=== PATIENT | male | born 1965 | race Caucasian/White ===

== ENCOUNTER 2016-03-19 17:09 | Emergency (ER) | payer BC ==
[~2016-03-19] VITALS: Ht 167.6 cm; Wt 90.7 kg
[~2016-03-19 17:09] MED LIST: NOMEDS XX; NORCO 325 MG-51 TAB PO
--- NOTE | 2016-03-19 18:36 | Urgent Treatment Center Report ---
History of Present Issue Date/Time Seen by Provider 03/19/16 1715 Visit Reason Pt arrived:Walked Presenting Problem:PT C/O COUGH, SORE THROAT, CONGESTION Location if Accident: Onset of symptoms date/time:/ or onset unknown for:MEDICAL HX UNKNOWN Have you (or family members/close friends) recently traveled outside the [place]? N If Yes, where/when: Have you had exposure to infectious disease within the past month? TB? Other? Specify: Patient states that he was seen and treated by his family doctor 1 month ago for bronchitis, states that he still has cough, congestion and drainage at this time. States that it is some better after recieving antibiotic shot a couple weeks ago however now his throat is feeling scratchy and cough is coming back for last week Source patient Exam Limitations no limitations ALLERGIES Coded Allergies: NO KNOWN ALLERGIES (10/12/14) Home Medications Reported Medications No Home Medications (NO HOME MEDICATIONS) 1 EACH XX ONCE History Medical History General CAD? No Angina: No [place]: No Hypertension? No Hyperlipidemia? No CHF? No DVT? No PE? No COPD? No Asthma? No Anemia? No GERD? No Gastric ulcers? No GI Bleed? No Hernia? No Thyroid Problems? No Hypothyroidism? No CVA? No Seizures? No Diabetes? No Insulin Dependent: No Insulin Pump: No Home FSBS? No Renal Insuffiency? No UTI? No Stones? No BPH? No GB Disease: No Nephritic Syndrome? No Asplenia? No Hepatitis? No Sickle Cell Disease? No Arthritis? No Migraines? No Cataracts? No Glaucoma? No MRSA? No HIV? No TB? No Anxiety? No Depression? No Cancer? No Immunization HX DT/Tetanus 5-10 Years Ago Surgical Hx Previous Surgery?Y Tonsils And/Or Adenoids LEFT ARM Social History Smoking Hx Smoker: Never Smoker Tobacco: No Alcohol Alcohol: No Review of Systems All Other Systems Reviewed and Negative Constitutional denies no symptoms reported, denies see HPI Eyes denies no symptoms reported, denies see HPI ENT denies: no symptoms reported, see HPI. Respiratory denies see HPI, denies cough Cardiovascular denies no symptoms reported Physical Exam Vital Signs Vital Signs Date Time Temp Pulse Resp B/P Pulse O2 O2 Flow FiO2 Ox Delivery Rate 03/19 1725 97.3 74 16 130/88 99 Patient states that he has had chronic cough for over a month states that it comes and goes and has continued to get worse over the last week. Was given antibiotic shot a couple weeks ago felt better and now cough is starting to return. 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 Lung Sounds bilateral: normal breath sounds, lungs clear. Cardiovascular normal exam Neurologic alert, normal exam Glascow Coma Scale Glascow Coma Scale Response Value EYE response: 4 Spontaneously 4 MOTOR response: 6 OBEYS 6 VERBAL response: 5 Oriented & Converses 5 Total 15 Medical Decision Making LABS/Meds/Orders Pt receiving controlled substance in ED? No Results/Orders Laboratory Tests 03/19/16 1723: Group A Strep Screen NOT DETECTED Orders Procedure Date/time Status CHEST(2 VIEWS-NOT PORTABLE) 03/19 1743 Active [facility] STREP SCREEN 03/19 172 Complete XRAY/CT/US XRAY/CT/US XRAY chest (discussed with Dr Mackey), discussed with Dr Mackey advised normal xray Departure Departure Time of Disposition 1855 Disposition DC Home or Self Care(routine) Clinical Impression Primary Impression: Cough Condition STABLE Referrals Ubaldo Hathaway MD (Family): [facility] Patient Instructions Cough, Prednisone Additional Instructions Take medications as prescribed FOllow up family doctor if symptoms do not improve or worsen 2-3 days Return if needed Use of humidifier to help add moisture to the air Use of over the counter allergy medication IE Loratadine for allergy symptoms Discharge Counseling Counseled pt/family regarding diagnosis, test results, home care Prescriptions Current Visit Scripts Prednisone (Prednisone 20MG) 20 MG PO BID #10 TAB Fluticasone Propionate (Flonase 50 Mcg Nasal [place]) 2 SPRAY NA DAILY #1 BOT at 1857
[2016-03-19] MEDS ORDERED: PREDNISONE 20MG20 MG PO (18:54)
[2016-03-19] MEDS ORDERED: FLONASE 50 MCG16 GM (18:54)
[2016-03-19 19:00] VITALS: BP 130/88
--- NOTE | 2016-03-19 19:09 | RADIOLOGY REPORT PS360 ---
CHEST(2 VIEWS-NOT PORTABLE) HISTORY: acute bronchitits ORDERING PHYSICIAN: [place] APRN PATIENT AGE: 50 years COMPARISON: None available FINDINGS: The cardiomediastinal silhouette and pulmonary vascularity are within normal limits. The lungs are clear without infiltrates, suspicious nodules, or pleural effusions. No acute bony abnormalities. IMPRESSION: Negative chest, no acute finding
== END 2016-03-19 19:01 | disposition home or self-care (01) ==
LOC: UTC 17:09
DX: R05 Cough (principal); R07.0 Pain in throat

== ENCOUNTER 2016-03-31 10:49 | Emergency (ER) | payer BC ==
[~2016-03-31] VITALS: Ht 167.6 cm; Wt 89.8 kg
[~2016-03-31 10:49] MED LIST changes: +FLONASE 50 MCG16 GM; +PREDNISONE 20MG20 MG PO
--- NOTE | 2016-03-31 12:50 | Urgent Treatment Center Report ---
History of Present Issue Date/Time Seen by Provider 03/31/16 1232 Visit Reason Pt arrived:Walked Presenting Problem:PT STATES LOWER BACK PAIN ON LEFT SIDE THAT COMES AROUND INTO GROIN AREA. STATES PAIN BEGAN THURSDAY AFTER LIFTING ON THURSDAY. PT STATES CERTAIN POSITIONS MAKE PAIN SEVERE. STATES TAKING TYLENOL AT 0500 WITH NO RELIEF. Location if Accident: Onset of symptoms date/time:03/29/16/ or onset unknown for:MEDICAL HX UNKNOWN Have you (or family members/close friends) recently traveled outside the [place]? N If Yes, where/when: Have you had exposure to infectious disease within the past month? TB? Other? Specify: c/o left low back pain radiating into left hip. Woke up Thursday morning w/ mild low back pain. Went that day and lifted "more then I would typically lift in a days time". Denies any known injury. "no pain that day while I was lifting". Pain worse that evening and has progressed since then. Denies pain in spine, left leg. no numbess, tingling, difficulty urinating or passing stool. No better w/ heat but only tried once. No better w/ tylenol. Hasn't taken or tried anything else for symptoms. No difficulty ambulating "except certain movements lead to pain but my movement and strength is good" Source patient Exam Limitations clinical condition (pain) ALLERGIES Coded Allergies: No Known Allergies (03/31/16) Home Medications Reported Medications No Home Medications (NO HOME MEDICATIONS) 1 EACH XX ONCE History Medical History General CAD? No Angina: No [place]: No Hypertension? No Hyperlipidemia? No CHF? No DVT? No PE? No COPD? No Asthma? No Anemia? No GERD? No Gastric ulcers? No GI Bleed? No Hernia? No Thyroid Problems? No Hypothyroidism? No CVA? No Seizures? No Diabetes? No Insulin Dependent: No Insulin Pump: No Home FSBS? No Renal Insuffiency? No UTI? No Stones? No BPH? No GB Disease: No Nephritic Syndrome? No Asplenia? No Hepatitis? No Sickle Cell Disease? No Arthritis? No Migraines? No Cataracts? No Glaucoma? No MRSA? No HIV? No TB? No Anxiety? No Depression? No Cancer? No Immunization HX DT/Tetanus Unknown Surgical Hx Previous Surgery?Y Tonsils And/Or Adenoids LEFT ARM Hernia Repair Social History Smoking Hx Smoker: Never Smoker Tobacco: No Alcohol Alcohol: No Review of Systems All Other Systems Reviewed and Negative Constitutional denies weakness Respiratory denies shortness of breath Cardiovascular denies chest pain Gastrointestinal see HPI, denies nausea Genitourinary see HPI. Musculoskeletal see HPI Skin denies lesions, denies rash Physical Exam Vital Signs Vital Signs Date Time Temp Pulse Resp B/P Pulse O2 O2 Flow FiO2 Ox Delivery Rate 03/31 1249 20 03/31 1127 97.8 76 20 143/81 98 General Appearance mild distress (leaning to left on exam table,), slow to change positions, guarding left lower back Respiratory Status No: respiratory distress. Cardiovascular no peripheral edema Peripheral Pulses Pulses normal Yes (pedal) Back normal inspection, no vertebral tenderness, bowel/bladder continent, gait normal, decreased range of motion (lumbar spine, all directions), muscle spasm ( left lumbar/sacral region), strt leg raising(L)-NML, strt leg raising(R)-NML, full ROM left hip but w/ c/o pain low back all directions, tenderness left lumbar/sacral region w/ increased tenderness over left SI joint Strength 5 Lower Ext (L), 5 Lower Ext (R) Neurologic alert Reflexes Reflexes normal Yes (patella) Skin normal color, warm/dry Medical Decision Making LABS/Meds/Orders Pt receiving controlled substance in ED? No Results/Orders Current Medication Orders Sig/Christiano Start time Last Medication Dose Route Stop Time Status Admin Ketorolac 0 .STK-MED ONE 03/31 1246 DC Tromethamine .ROUTE Ketorolac 60 MG ONCE ONE 03/31 1245 DC 03/31 Tromethamine IM 03/31 1246 1249 Progress [facility] Progress Notes Date 03/31/16 Time 1315 Comment "Some" improvement w/ injection. No adverse reaction. Declined xray at this time. Agrees to FU for new or worsening symptoms. Departure Departure Time of Disposition 1318 Disposition DC Home or Self Care(routine) Clinical Impression Primary Impression: Low back strain Qualifiers: Encounter type: initial encounter Qualified Code: S39.012A - Strain of muscle, fascia and tendon of lower back, initial encounter Secondary Impressions: Muscle spasm of back Condition STABLE Referrals Mag ROBERT,Ubaldo (Family) Immediately for new or worsening symptoms or if no noticeable improvement over the next 48-72 hours w/ anti-inflammatories and muscle relaxer Patient Instructions DI for Back Spasm, DI for Back Strain or Sprain Additional Instructions Local ice/heat as discussed Muscle relaxer will cause drowsiness so no driving or operating machinary or watching small children after taking no additional anti-inflammatories if taking naproxen as prescribed. Tylenol as needed ok. Don't sit too long and don't move too much, both may cause pain. Stay active but take it easy. No lifting for several days, no heavy lifting for 10-14 days. Discharge Counseling Counseled pt/family regarding diagnosis, medications/RX, home care, follow up needs Prescriptions Current Visit Scripts NAPROXEN (NAPROSYN 500MG TAB) 500 MG PO BID #30 TAB Cyclobenzaprine Hcl (Flexeril) 0.5-1 TAB PO TIDP PRN muscle spasms #12 TAB at 1324
[2016-03-31] MEDS ORDERED: NAPROSYN 500MG500 MG PO (13:23)
[2016-03-31] MEDS ORDERED: FLEXERIL10 MG PO (13:23)
[2016-03-31 13:29] VITALS: BP 143/81
== END 2016-03-31 13:29 | disposition home or self-care (01) ==
LOC: UTC 10:49
DX: S39.012A Strain of muscle, fascia and tendon of lower back, initial encounter (principal)

== ENCOUNTER 2016-12-28 09:42 | Emergency (ER) | payer BC ==
[~2016-12-28] VITALS: Ht 167.6 cm; Wt 90.7 kg
[~2016-12-28 09:42] MED LIST changes: +FLEXERIL10 MG PO; +MOBIC7.5 MG PO; +NAPROSYN 500MG500 MG PO
--- OUTSIDE RECORDS SUMMARY | 2016-12-28 09:46 | External Medical Summary Rpt | CCD ---
Author Author , KARLO KIMBLE Address Unknown Phone [email or web address] Purpose Continuity of Care Document - through 2016 Problems Code Diagnosis DOS Provider Status K42.9 UMBILICAL HERNIA WITHOUT OBSTRUCTION OR GANGRENE
--- OUTSIDE RECORDS SUMMARY | 2016-12-28 09:46 | External Medical Summary Rpt | CCD ---
Author Author [employer] Organization [employer] Address Unknown Phone Unavailable Purpose Continuity of Care Document - through 2016
--- OUTSIDE RECORDS SUMMARY | 2016-12-28 09:46 | External Medical Summary Rpt | CCD ---
Demographics Preferred Language Colombian Marital Status Unknown Restorationist Affiliation Unknown Race Unknown Ethnic Group Unknown Author Author , KARLO KIMBLE Address Unknown Phone [email or web address] Immunization Name Date Rout CVX Reac Dose Comm Prov Is Faci e tion ent ider Refu lity Give sed n Td 03-0 9 999 Hist H149 No H149 (edith 5-19 oric lt), 97 al Info adso rmat rbed ion - Sour ce Unsp ecif ied
--- OUTSIDE RECORDS SUMMARY | 2016-12-28 09:46 | External Medical Summary Rpt | CCD ---
Demographics Preferred Language Bahraini Marital Status Unknown Lutheran Affiliation Unknown Race Unknown Ethnic Group Unknown Author Author , KARLO KIMBLE Address Unknown Phone [email or web address] Immunization Name Date Rout CVX Reac Dose Comm Prov Is Faci e tion ent ider Refu lity Give sed n Td 03-0 9 999 Hist H149 No H149 (edith 5-19 oric lt), 97 al Info adso rmat rbed ion - Sour ce Unsp ecif ied
--- OUTSIDE RECORDS SUMMARY | 2016-12-28 09:46 | External Medical Summary Rpt | CCD ---
Author Author , KARLO KIMBLE Address Unknown Phone [email or web address] Purpose Continuity of Care Document - through 2016 Problems Code Diagnosis DOS Provider Status K42.9 UMBILICAL HERNIA WITHOUT OBSTRUCTION OR GANGRENE
--- OUTSIDE RECORDS SUMMARY | 2016-12-28 09:46 | External Medical Summary Rpt ---
Author Author LAMIN Gambino, LAMIN Gambino Organization [employer] Address Unknown Phone Unavailable
[2016-12-28] MEDS ORDERED: ZITHROMAX Z-PA250 M2 PO (10:00)
[2016-12-28] MEDS ORDERED: FLONASE ALLERG9.9 ML NS (10:00)
--- NOTE | 2016-12-28 10:01 | Urgent Treatment Center Report ---
History of Present Issue Date/Time Seen by Provider 12/28/16 0971 Visit Reason Pt arrived:Walked Presenting Problem:PT C/O HEAD CONGESTION SINCE LAST THURSDAY Location if Accident: Onset of symptoms date/time:/ or onset unknown for:MEDICAL HX UNKNOWN Have you (or family members/close friends) recently traveled outside the [place]? N If Yes, where/when: Have you had exposure to infectious disease within the past month? TB? Other? Specify: Source patient, RN notes reviewed Exam Limitations no limitations Comment 51-year-old male presents for sinus pressure, yellow nasal drainage, and chest congestion since Thursday. Patient states getting worse ALLERGIES Coded Allergies: guaifenesin (From MUCINEX) (12/28/16) pseudoephedrine (From SUDAFED) (12/28/16) Home Medications Active Scripts Meloxicam (Mobic 7.5MG) 1 TAB PO DAILY #30 TAB Ref 2 Prov: 09/25/16 History Medical History General CAD? No Angina: No [place]: No Hypertension? No Hyperlipidemia? No CHF? No DVT? No PE? No COPD? No Asthma? No Anemia? No GERD? No Gastric ulcers? No GI Bleed? No Hernia? Yes Thyroid Problems? No Hypothyroidism? No CVA? No Seizures? No Diabetes? No Insulin Dependent: No Insulin Pump: No Home FSBS? No Renal Insuffiency? No UTI? No Stones? No BPH? No GB Disease: No Nephritic Syndrome? No Asplenia? No Hepatitis? No Sickle Cell Disease? No Arthritis? No Migraines? No Cataracts? No Glaucoma? No MRSA? No HIV? No TB? No Anxiety? No Depression? No Cancer? No More? No Immunization HX DT/Tetanus Unknown Surgical Hx Previous Surgery?Y Tonsils And/Or Adenoids LEFT ARM Hernia Repair Social History Smoking Hx Smoker: Never Smoker Tobacco: No Alcohol Alcohol: No Review of Systems All Other Systems Reviewed and Negative ENT see HPI, nose discharge, nose congestion. Physical Exam Vital Signs Vital Signs Date Time Temp Pulse Resp B/P Pulse O2 O2 Flow FiO2 Ox Delivery Rate 12/28 0949 98.4 117 18 134/82 96 - WBC >12,000 or <4,000 or 10% bands? 2 or more SIRS Criteria Met? B/P:134/82 MAP:99 Creatinine >2.0? UA output<0.5ml/kg/hr for 2 hrs? Platelet count >100,000? Lactate >2.0mmol/1? INR >1.2 or PTT > than 60 sec? Evidence of Organ Dysfunction? Provider documented clinical suspician of infection? Sepsis Criteria Count: 1 Sepsis Risk: General Appearance normal appearance, no apparent distress Eye Exam - bilateral eye normal exam, bilateral eye PERRL, bilateral eye EOMI Ear, Nose, Throat hearing grossly normal, normal ENT inspection, sinus pain/ drainage, nasal congestion, pharyngeal erythema Neck normal inspection, full range of motion Respiratory Status Yes: trachea midline, chest symmetrical, non tender chest. No: respiratory distress. Lung Sounds bilateral: normal breath sounds, lungs clear, decreased breath sounds. Cardiovascular normal exam, no peripheral edema Neurologic alert, normal exam, oriented x 3 Medical Decision Making LABS/Meds/Orders Pt receiving controlled substance in ED? No Departure Departure Time of Disposition 0959 Disposition DC Home or Self Care(routine) Clinical Impression Primary Impression: Maxillary sinusitis Qualifiers: Chronicity: acute Recurrence: non-recurrent Qualified Code: J01.00 - Acute maxillary sinusitis, unspecified Condition STABLE Referrals Ubaldo Hathaway MD (Family) Patient Instructions Sinusitis Additional Instructions Medications discussed with patient Symptoms worsen or do not improve return or be seen in the ER Follow-up with PCP this week if no improvement Discharge Counseling Counseled pt/family regarding diagnosis, test results, medications/RX, home care, follow up needs Prescriptions Current Visit Scripts Fluticasone Propionate (Flonase Allergy Relief) 9.9 ML NS DAILY 14 Days Azithromycin (Zithromax) 250 MG PO DAILY #6 TAB USE DIRECTED. at 1001
[2016-12-28 10:04] VITALS: BP 134/82
== END 2016-12-28 10:04 | disposition home or self-care (01) ==
LOC: UTC 09:42
DX: J01.00 Acute maxillary sinusitis, unspecified (principal)